=== PATIENT | male | born 1980 ===

== ENCOUNTER 2021-07-29 21:39 | Emergency (ER) | payer SELFPAY ==
[~2021-07-29] VITALS: Ht 193 cm; Wt 91.0 kg
[2021-07-30 01:30] VITALS: BP 122/95
== END 2021-07-30 02:46 | disposition left against medical advice (07) ==
LOC: ER 21:39
DX: R07.89 Other chest pain (principal); M54.2 Cervicalgia; M54.89 Other dorsalgia; V49.40XA Driver injured in collision with unspecified motor vehicles in traffic accident, initial encounter; Y93.89 Activity, other specified; Y92.410 Unspecified street and highway as the place of occurrence of the external cause; M25.512 Pain in left shoulder
CPT/HCPCS: 99283